=== PATIENT | male | born 1945 | race Caucasian/White ===

== ENCOUNTER → 2022-11-30 | Emergency (ER) | payer MEDICARE, OTHER ==
[~2022-11-30] VITALS: Ht 172.7 cm; Wt 70.3 kg
[~2022-11-30] MED LIST: IOHEXOL 350 100 ML INFUS..BTL ONE; IV NORMAL SALINE 250 ML IV ONE; SWABABLE VALVE TRANSFER SET EA MC ONE
--- NOTE | 2022-11-30 11:53 | NUR ---
seen and examined by
--- NOTE | 2022-11-30 12:05 | NUR ---
Patient is currently in ER hallway. No available monitored ER beds/rooms at this time. 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
[2022-11-30 12:27] LABS: MEAN CORPUSCULAR HEMOGLOBIN 31.2 uug (23.8-33.4); MEAN CORPUSCULAR VOLUME 92.4 fL (73.0-96.2); PLATELET COUNT (AUTO) 214 K/uL (152-348)
--- NOTE | 2022-11-30 12:32 | NUR ---
Patient was moved to ER bed 4B from ER hallway. Cardiac, BP & SPO2 monitors are now on, alarms set & audible.
[2022-11-30 12:37] LABS: CARBON DIOXIDE 30 mmol/L (21-32); CHLORIDE 104 mmol/L (98-107); GLUCOSE 104 mg/dL (74-106); UREA NITROGEN, BLOOD 13 mg/dL (7-18)
[2022-11-30 16:13] VITALS: BP 122/75
== END | disposition home or self-care (01) ==
LOC: ER 11:31
DX: R51.9 Headache, unspecified (principal); R07.89 Other chest pain
CPT/HCPCS: 99285; 70496; 71045; 80048; 85025; 85651; 85730; 84484; 36415; 93005; 70498; Q9967; A4663